=== PATIENT | male | born 1985 | race Caucasian/White ===

== ENCOUNTER 2020-08-03 23:29 | Emergency (ER) | payer OTHER ==
[2020-08-03 23:36] VITALS: BP 127/86; PULSE 88; TEMP 98.2; BMI 35.4
== END 2020-08-04 00:10 | disposition home or self-care (01) ==
LOC: JER 23:29
DX: Z77.29 Contact with and (suspected) exposure to other hazardous substances (principal)
CPT/HCPCS: 99282-25

== ENCOUNTER 2021-11-28 17:30 | Emergency (ER) | payer OTHER ==
[2021-11-28 18:04] VITALS: BP 127/79; PULSE 88; RESP 16; TEMP 99.4; BMI 37.6
== END 2021-11-28 18:13 | disposition home or self-care (01) ==
LOC: FER 17:30
DX: S59.902A Unspecified injury of left elbow, initial encounter (principal)
CPT/HCPCS: 99283-25

== ENCOUNTER 2022-05-01 18:39 | Emergency (ER) | payer OTHER ==
[2022-05-01] MEDS ORDERED: IBUPROFEN 600 MG TABLET (FP) PO ONE ×2 (18:41→18:45)
[2022-05-01 18:43] VITALS: BP 134/97; PULSE 87; RESP 18; TEMP 98.2; BMI 36.9
== END 2022-05-01 19:14 | disposition home or self-care (01) ==
LOC: FER 18:39
DX: S99.912A Unspecified injury of left ankle, initial encounter (principal); W22.8XXA Striking against or struck by other objects, initial encounter
CPT/HCPCS: 73610-TC-LT-FY; 99283-25

== ENCOUNTER 2022-10-23 20:54 | Emergency (ER) | payer OTHER ==
[2022-10-23 21:15] VITALS: BP 128/88; PULSE 87; RESP 18; TEMP 98.9; BMI 37.0
[2022-10-23] MEDS ORDERED: NAPROXEN 500 MG TABLET PO ONE (21:32)
[2022-10-23] MEDS ORDERED: NAPROXEN 500 MG TABLET ONE (21:35)
== END 2022-10-23 21:40 | disposition home or self-care (01) ==
LOC: FER 20:54
DX: S16.1XXA Strain of muscle, fascia and tendon at neck level, initial encounter (principal); S39.012A Strain of muscle, fascia and tendon of lower back, initial encounter; M54.50 Low back pain, unspecified; M25.519 Pain in unspecified shoulder; V89.2XXA Person injured in unspecified motor-vehicle accident, traffic, initial encounter; Y93.I9 Activity, other involving external motion; Y92.009 Unspecified place in unspecified non-institutional (private) residence as the place of occurrence of the external cause
CPT/HCPCS: 99283-25

== ENCOUNTER 2023-05-22 18:02 | Emergency (ER) | payer OTHER ==
[2023-05-22 18:14] VITALS: BP 133/70; PULSE 98; RESP 18; TEMP 98.3; BMI 37.6
[2023-05-22] MEDS ORDERED: IBUPROFEN 600 MG TABLET (FP) PO ONE (19:39)
[2023-05-22] MEDS: IBUPROFEN 600 MG TABLET (FP) PO ONE (19:40)
== END 2023-05-22 19:50 | disposition home or self-care (01) ==
LOC: FER 18:02
DX: M54.6 Pain in thoracic spine (principal); S29.012A Strain of muscle and tendon of back wall of thorax, initial encounter; X58.XXXA Exposure to other specified factors, initial encounter
CPT/HCPCS: 99283-25

== ENCOUNTER 2023-12-09 18:56 | Emergency (ER) | payer OTHER ==
[2023-12-09 19:16] VITALS: BP 149/89; PULSE 84; RESP 16; TEMP 99; BMI 31.8
== END 2023-12-09 19:31 | disposition home or self-care (01) ==
LOC: FER 18:56
DX: S60.512A Abrasion of left hand, initial encounter (principal); Y35.811A Legal intervention involving manhandling, law enforcement official injured, initial encounter
CPT/HCPCS: 99283-25

== ENCOUNTER 2024-11-28 11:17 | Emergency (ER) | payer OTHER ==
[2024-11-28 11:32] VITALS: BP 115/55; PULSE 94; RESP 20; TEMP 98.4; BMI 31.7
[2024-11-28] MEDS ORDERED: IBUPROFEN 600 MG TABLET (FP) PO ONE (11:35)
[2024-11-28] MEDS: IBUPROFEN 600 MG TABLET (FP) PO ONE (11:36)
== END 2024-11-28 14:17 | disposition home or self-care (01) ==
LOC: JERFT 11:17
DX: S20.211A Contusion of right front wall of thorax, initial encounter (principal); S80.211A Abrasion, right knee, initial encounter; S80.212A Abrasion, left knee, initial encounter; S50.312A Abrasion of left elbow, initial encounter; Y35.811A Legal intervention involving manhandling, law enforcement official injured, initial encounter
CPT/HCPCS: 71101-TC-RT-FY; 73562-TC-LT-FY; 99284-25